=== PATIENT | male | born 1970 | race Two or more races ===

== ENCOUNTER 2021-07-26 20:06 | Emergency (ER) | payer OTHER ==
[~2021-07-26] VITALS: Ht 182.9 cm; Wt 77.1 kg
--- NOTE | 2021-07-26 20:21 | NUR ---
BIBRA 860 FROM FOR C/O R HAND PAIN AND ABRASION S/P FALL
--- NOTE | 2021-07-26 20:38 | NUR ---
Patient discharged to home in stable condition. Written and verbal after care instructions given. Patient verbalizes understanding of instruction. PT ambulatory with a steady gait
[2021-07-26] MEDS ORDERED: ACETAMINOPHEN ES 500 MG TABLET ONE (20:52)
[2021-07-26] MEDS: ACETAMINOPHEN ES 500 MG TABLET PO ONE (20:52)
[2021-07-26 21:46] VITALS: BP 141/85
== END 2021-07-26 21:38 | disposition home or self-care (01) ==
LOC: ER 20:09
DX: S50.811A Abrasion of right forearm, initial encounter (principal); Z59.00 Homelessness unspecified; W18.39XA Other fall on same level, initial encounter; Y93.89 Activity, other specified; Y92.89 Other specified places as the place of occurrence of the external cause; Y99.8 Other external cause status